=== PATIENT | female | born 1930 | race Caucasian/White ===

== ENCOUNTER 2016-10-22 15:54 | Inpatient (IN) | payer MEDICARE, BC ==
[~2016-10-22] VITALS: Ht 167.6 cm; Wt 88.1 kg
[~2016-10-22 15:54] MED LIST: ASPIRIN E.C. 8181 MG PO; CALTRATE-600 W600 MG PO; CENTRUM1 TAB PO; DIOVAN HCT PO; GLUCOPHAGE500 MG/TAB PO; KLOR-CON 1010 MEQ PO; LIPITOR 10MG10 MG PO; LOPRESSOR 550 MG/TAB PO; MAGNESIUM OXIDE PO; NATURAL E400 IU PO; ULTRAM 50MG TAB50 MG PO; VESICARE PO; ZOFRAN 4MG T4 MG/TAB PO
[2016-10-22 16:21] LABS: BASO % 0.2 % (0.0-2.0); EOS # 0.2 (0.0-0.7); EOS % 1.2 % (0-4.0); GRAN # 9.7 (1.4-6.5); GRAN % 74.9 % (42.2-75.2); HEMATOCRIT 39.7 % (37.0-47.0); HEMOGLOBIN 13.1 g/dl (12.5-16.0); LYMPH # 1.9 (1.2-3.4); LYMPH % 14.5 % (20.0-51.0); MEAN CELL VOLUME 88 fl (80.0-100.0); MEAN CORPUSCULAR HEMOGLOBIN 29 pg (27.0-31.0); MEAN CORPUSCULAR HGB CONC 33 g/dl (33.0-37.0); MEAN PLATELET VOLUME 8.9 fl (7.4-10.4); MONO # 1.1 (0.1-0.6); MONO % 8.8 % (1.7-9.3); PLATELET COUNT 325 K/mm3 (130-400); RED BLOOD COUNT 4.52 M/mm3 (4.10-5.30); REDCELL DISTRIBUTION WIDTH-CV 13.9 % (11.5-14.5); WHITE BLOOD COUNT 12.9 K/mm3 (4.8-10.8)
[2016-10-22 16:23] LABS: INR 0.9 (0.8-3.0); PROTHROMBIN TIME 9.7 SECONDS (9.7-12.8)
[2016-10-22 16:25] LABS: PARTIAL THROMBOPLASTIN TIME 26.4 SECONDS (26.0-37.0)
[2016-10-22 16:29] LABS: ADJUSTED CALCIUM 9.6 mg/dL (8.4-10.2); ALANINE AMINOTRANSFERASE 29 U/L (9-52); ALBUMIN 4.4 gm/dL (3.5-5.0); ALKALINE PHOSPHATASE 89 U/L (50-136); ANION GAP 11 mmol/L (7-16); BILIRUBIN,TOTAL 0.7 mg/dL (0.0-1.0); BLOOD UREA NITROGEN 16 mg/dL (7-17); CALCIUM 9.9 mg/dL (8.4-10.2); CARBON DIOXIDE 24 mmol/L (22-30); CREATININE, serum 0.74 mg/dL (0.52-1.25); GLUCOSE 181 mg/dL (74-106); POTASSIUM 4.8 mmol/L (3.4-5.0); SODIUM 123 mmol/L (137-145)
[2016-10-22 16:31] LABS: CHLORIDE 88 mmol/L (98-107)
[2016-10-22 16:36] LABS: PH 7 (5-8); SQUAMOUS EPITHELIAL None Seen /hpf; URINE APPEARANCE Hazy; URINE BACTERIA Rare /hpf; URINE BILIRUBIN Negative (NEGATIVE); URINE BLOOD Negative (NEGATIVE); URINE COLOR Yellow; URINE GLUCOSE Negative (NEGATIVE); URINE KETONE Negative (NEGATIVE); URINE UROBILINOGEN Negative (NEGATIVE)
[2016-10-22 16:43] LABS: TROPONIN-I < 0.012 ng/mL (0.000-0.034)
[2016-10-22] MEDS ORDERED: CLARITIN 1010 MG/TAB PO (17:00)
[2016-10-22] MEDS ORDERED: AMARYL 2MG T2 MG/TAB PO (17:01)
[2016-10-22] MEDS ORDERED: JANUVIA50 MG PO (17:01)
[2016-10-22] MEDS ORDERED: CEPHALEXIN500 M1 PO (17:02)
[2016-10-22] MEDS ORDERED: LIDODERM 5% PATC1 EA TP (17:03)
[2016-10-22] MEDS ORDERED: SYNTHROID 0.0.025 MG PO (17:03)
[2016-10-22] MEDS ORDERED: COZAAR100 MG PO (17:04)
[2016-10-22] MEDS ORDERED: MAG-OX 400400 MG/TAB PO (17:05)
[2016-10-22] MEDS ORDERED: MULTIPLE VITAMI1 CAP PO (17:06)
[2016-10-22] MEDS ORDERED: PEPCID 20MG TAB20 MG PO (17:07)
[2016-10-22] MEDS ORDERED: PLAVIX 75MG TAB75 MG PO (17:07)
[2016-10-22] MEDS ORDERED: REGLAN 10MG10 MG/TAB PO (17:07)
[2016-10-22] MEDS ORDERED: SENOKOT S 50 MG1 TAB PO (17:08)
[2016-10-22] MEDS ORDERED: ZOCOR 40MG40 MG PO (17:10)
[2016-10-22 19:35] VITALS: BP 109/36; PULSE 110; TEMP 98.8
[2016-10-22 23:07] VITALS: BP 147/73; PULSE 104; TEMP 97.6
[2016-10-23 02:54] VITALS: BP 157/66; PULSE 99; TEMP 99.4
[2016-10-23 08:26] VITALS: BP 164/78; PULSE 94; TEMP 97.1
[2016-10-23 09:15] LABS: ANION GAP 7 mmol/L (7-16); BLOOD UREA NITROGEN 12 mg/dL (7-17); CALCIUM 8.5 mg/dL (8.4-10.2); CARBON DIOXIDE 26 mmol/L (22-30); CHLORIDE 93 mmol/L (98-107); CREATININE, serum 0.73 mg/dL (0.52-1.25); GLUCOSE 172 mg/dL (74-106); MAGNESIUM 1.7 mg/dL (1.6-2.3); POTASSIUM 4.4 mmol/L (3.4-5.0); SODIUM 125 mmol/L (137-145)
[2016-10-23 09:31] LABS: TROPONIN-I < 0.012 ng/mL (0.000-0.034)
[2016-10-23 11:08] VITALS: BP 143/48; PULSE 88; TEMP 98.7
[2016-10-23 14:22] VITALS: BP 131/58; PULSE 76; TEMP 98.2
[2016-10-23 20:06] VITALS: BP 154/93; PULSE 90; TEMP 98.6
[2016-10-23 23:00] VITALS: BP 153/58; PULSE 82; TEMP 98.7
[2016-10-24 05:47] VITALS: BP 166/92; PULSE 83; TEMP 98.6
[2016-10-24 07:22] LABS: BASO % 0.3 % (0.0-2.0); EOS # 0.3 (0.0-0.7); EOS % 3.8 % (0-4.0); GRAN # 4.5 (1.4-6.5); GRAN % 57.1 % (42.2-75.2); LYMPH % 25.9 % (20.0-51.0); MEAN CELL VOLUME 90 fl (80.0-100.0); MEAN CORPUSCULAR HGB CONC 33 g/dl (33.0-37.0); MEAN PLATELET VOLUME 9.2 fl (7.4-10.4); MONO % 12.6 % (1.7-9.3); PLATELET COUNT 261 K/mm3 (130-400); RED BLOOD COUNT 3.63 M/mm3 (4.10-5.30); REDCELL DISTRIBUTION WIDTH-CV 14.2 % (11.5-14.5); WHITE BLOOD COUNT 7.8 K/mm3 (4.8-10.8)
[2016-10-24 07:28] LABS: HEMATOCRIT 32.6 % (37.0-47.0); HEMOGLOBIN 10.8 g/dl (12.5-16.0); MEAN CORPUSCULAR HEMOGLOBIN 30 pg (27.0-31.0)
[2016-10-24 07:48] LABS: CALCIUM 8.7 mg/dL (8.4-10.2); CREATININE, serum 0.68 mg/dL (0.52-1.25)
[2016-10-24 07:52] VITALS: BP 182/90; PULSE 94; TEMP 98.3
[2016-10-24] MEDS ORDERED: SINEMET 25/101 UDTAB PO (11:24)
[2016-10-24 11:55] VITALS: BP 180/80; PULSE 100; TEMP 98
== END 2016-10-24 15:15 | DRG 923 ==
LOC: COL.ER 15:54 → MEDICAL 17:41
PROVIDERS: Emergency Medicine; Family Medicine
DX: T67.5XXA Heat exhaustion, unspecified, initial encounter (principal); I69.354 Hemiplegia and hemiparesis following cerebral infarction affecting left non-dominant side; N39.0 Urinary tract infection, site not specified; E87.1 Hypo-osmolality and hyponatremia; I16.0 Hypertensive urgency; I25.10 Atherosclerotic heart disease of native coronary artery without angina pectoris; I10 Essential (primary) hypertension; Z95.5 Presence of coronary angioplasty implant and graft; F03.90 Unspecified dementia, unspecified severity, without behavioral disturbance, psychotic disturbance, mood disturbance, and anxiety; Z85.3 Personal history of malignant neoplasm of breast; E86.0 Dehydration; E11.9 Type 2 diabetes mellitus without complications; Z95.1 Presence of aortocoronary bypass graft; F01.50 Vascular dementia, unspecified severity, without behavioral disturbance, psychotic disturbance, mood disturbance, and anxiety; G31.83 Neurocognitive disorder with Lewy bodies; F02.80 Dementia in other diseases classified elsewhere, unspecified severity, without behavioral disturbance, psychotic disturbance, mood disturbance, and anxiety
CPT/HCPCS: 99233-AI; 99239; A9585; J0696; J1650; J1815; J1956; J7030